=== PATIENT | female | born 1965 | race Caucasian/White ===

== ENCOUNTER 2017-02-09 11:03 | Outpatient (CLI) | payer MEDICAID ==
[2017-02-09] VITALS (11 sets, daily range): BP systolic 112–137; BP diastolic 51–70
[~2017-02-09 11:03] MED LIST: AMITRIPTYLINE100 M1 PO; B12-METHYL1000 MCG PO; BIOTIN1 TAB PO; BLACK COHOSH40 M1 PO; CITALOPRAM40 MG PO; ERYTHROMYCIN 2250 M3 PO; FELDENE10 MG PO; FLUTICASONE 50M16 GM; GABAPENTIN400 MG PO; HUMULIN 70100 UNITS/ SC; HYDROCODONE-APA1 TA1 PO; LASIX 20MG. TAB20 MG PO; LASIX20 MG PO; LEVOTHYROXINE0.1 M2 PO; LIPITOR40 MG PO; LISINOPRIL AND1 TA1 PO; MAXZIDE 25 MG-31 TAB PO; METFORMIN1000 MG PO; NOVOLIN 70/30 710 ML SC; NOVOLOG MIX 70/10 M1 SC; PAROXETINE20 MG PO; PIROXICAM PO; RANITIDINE150 M1 PO; TANZEUM30 MG SC; TRAMADOL 50MG T50 M1 PO; TRAMADOL50 M1 PO
[2017-02-09 11:46] LABS: HEMOGLOBIN 10.9 g/dL (12.2-16.2); LYMPH % 10.9 % (10-50.0)
[2017-02-09 12:00] LABS: BUN 32 mg/dL (7-18)
[2017-02-09 12:01] LABS: GFR (ESTIMATED) 30 ML/MIN (59-)
[2017-02-09] MEDS ORDERED: BUSPIRONE HCL10 MG PO (13:10)
[2017-02-09] MEDS ORDERED: LISINOPRIL HCTZ1 TAB PO (13:10)
[2017-02-09] MEDS ORDERED: GABAPENTIN 400400 MG PO (13:11)
[2017-02-09] MEDS ORDERED: LEVEMIR FLEX100 U/ML SC (13:14)
[2017-02-09] MEDS ORDERED: CLINDAMYCIN HC300 MG PO (13:15)
== END 2017-02-09 15:30 | disposition home or self-care (01) ==
LOC: COP 11:03
PROVIDERS: Nurse Practitioner Family
DX: A46 Erysipelas (principal)
CPT/HCPCS: J3370

== ENCOUNTER 2017-06-27 05:48 | Emergency (ER) | payer MEDICARE, OTHER, MEDICAID ==
[~2017-06-27] VITALS: Ht 167.6 cm; Wt 111.1 kg
[~2017-06-27 05:48] MED LIST changes: +BUSPIRONE HCL10 MG PO; +CLINDAMYCIN HC300 MG PO; +GABAPENTIN 400400 MG PO; +LEVEMIR FLEX100 U/ML SC; +LISINOPRIL HCTZ1 TAB PO; +MELOXICAM15 MG PO; +OMEPRAZOLE20 MG PO
--- OUTSIDE RECORDS SUMMARY | 2017-06-27 06:07 | External Medical Summary Rpt | CCD ---
Author Author , OPAL ROBERTSON Address Unknown Phone [email or web address] Purpose Continuity of Care Document - 11-07-2016 through 2016 Problems Code Diagnosis DOS Provider Status R06.02 SHORTNESS 05-06-2017 OF BREATH M17.0 BILATERAL 11-07-2016 PRIMARY OSTEOARTHRI TIS OF KNEE M54.5 LOW BACK 11-07-2016 PAIN A08.11 ACUTE GASTROENTER OPATHY DUE TO [place] AGENT D64.9 ANEMIA, UNSPECIFIED D72.829 ELEVATED WHITE BLOOD CELL COUNT, UNSPECIFIED E11.9 TYPE 2 DIABETES MELLITUS WITHOUT COMPLICATIO NS I10 ESSENTIAL (PRIMARY) HYPERTENSIO N N28.9 DISORDER OF KIDNEY AND URETER, UNSPECIFIED R07.9 CHEST PAIN, UNSPECIFIED R10.13 EPIGASTRIC PAIN R55 SYNCOPE AND COLLAPSE R73.9 HYPERGLYCEM IA, UNSPECIFIED R92.0 MAMMOGRAPHI C MICROCALCIF ICATION FOUND ON DX IMAGING OF BRST R92.1 MAMMOGRAPHI C CALCIFCN FOUND ON DIAGNOSTIC IMAGING OF BREAST Results Labs Lab Lab Date Result Refere Interp Status Commen Order Detail nces retati t Range on Hemoglobin A1c in Blood (05-04-2017 08:44) Hemoglo 7.4 % 0.0% High complet bin A1c 017 - ed in 08:44 7.0% Blood
--- OUTSIDE RECORDS SUMMARY | 2017-06-27 06:07 | External Medical Summary Rpt | CCD ---
Author Author , OPAL ROBERTSON Address Unknown Phone [email or web address] Purpose Continuity of Care Document - 11-07-2016 [...]
--- OUTSIDE RECORDS SUMMARY | 2017-06-27 06:07 | External Medical Summary Rpt | CCD ---
Author Author [employer] Address Unknown Phone Unavailable Purpose Continuity of Care Document - through 2016
--- OUTSIDE RECORDS SUMMARY | 2017-06-27 06:08 | External Medical Summary Rpt ---
Author Author TARADEREK Best, [employer] Address Unknown Phone Unavailable Results Comprehensive metabolic 2000 panel in Serum or Plasma Observa Value Referen Units Interpr Notes Date tion ce etation Range Albumin/G 1.1 - 1.8 No Normal No Sep 18 lobulin informati informati 2017 8:44 [Mass on in on in AM ratio] in source source Serum or data data Plasma Albumin 3.4 - 5.0 gm/dL Normal No Sep 18 [Mass/vol informati 2017 8:44 ume] in on in AM Serum or source Plasma data Alkaline 46 - 116 U/L Normal No Sep 18 phosphata informati 2017 8:44 se on in AM [Enzymati source c data activity/ volume] in Serum or Plasma Bilirubin 0.2 - 1.0 mg/dL Normal No Sep 18 .total informati 2017 8:44 [Mass/vol on in AM ume] in source Serum or data Plasma Urea 7 - 18 mg/dL Normal No Sep 18 nitrogen informati 2017 8:44 [Mass/vol on in AM ume] in source Serum or data Plasma Calcium 8.5 - mg/dL Normal No Sep 18 [Mass/vol 10.1 informati 2017 8:44 ume] in on in AM Serum or source Plasma data Chloride 98 - 107 mmoL/L Normal No Sep 18 [Moles/vo informati 2017 8:44 lume] in on in AM Serum or source Plasma data Carbon 21.0 - mmoL/L Normal No Sep 18 dioxide, 32.0 informati 2017 8:44 total on in AM [Moles/vo source lume] in data Serum or Plasma Creatinin 0.55 - mg/dL High No Sep 18 e 1.02 informati 2017 8:44 [Mass/vol on in AM ume] in source Serum or data Plasma Estimated 59- ML/MIN Low REFERENCE Sep 18 RANGE: 2017 8:44 glomerula >60 AM r ML/MIN/1. filtratio 73 SQUARE n rate METERSIf (GF this patient is -A merican, then multiply theresult by 1.210. Globulin 1.3 - 3.2 gm/dL Normal No Sep 18 [Mass/vol informati 2017 8:44 ume] in on in AM Serum source data Glucose 74 - 106 mg/dL High No Sep 18 [Mass/vol informati 2017 8:44 ume] in on in AM Serum or source Plasma data Potassium 3.5 - 5.1 mmoL/L Normal No Sep 18 informati 2016 8:44 [Moles/vo on in AM lume] in source Serum or data Plasma Sodium 136 - 145 mmoL/L Normal No Sep 18 [Moles/vo informati 2017 8:44 lume] in on in AM Serum or source Plasma data Aspartate 15 - 37 U/L Normal No Sep 18 informati 2016 8:44 aminotran on in AM sferase source [Enzymati data c activity/ volume] in Serum or Plasma Alanine 12 - 78 U/L Normal No Sep 18 aminotran informati 2016 8:44 sferase on in AM [Enzymati source c data activity/ volume] in Serum or Plasma Protein 6.4 - 8.2 gm/dL Normal No Sep 18 [Mass/vol informati 2017 8:44 ume] in on in AM Serum or source Plasma data Lipid 1996 panel in Serum or Plasma Observa Value Referen Units Interpr Notes Date tion ce etation Range Cholester < 200 mg/dL No No Sep 18 ol informati informati 2016 8:44 [Moles/vo on in on in AM lume] in source source Unspecifi data data ed specimen Cholester 40 - 60 MG/DL Normal No Sep 18 ol in HDL informati 2017 8:44 on in AM [Mass/vol source ume] in data Serum or Plasma Cholester 0 - 130 mg/dL Normal No Sep 18 ol in LDL informati 2017 8:44 on in AM [Mass/vol source ume] in data Serum or Plasma by néstor on Triglycer 30 - 200 mg/dL Normal No Sep 18 pretty informati 2017 8:44 [Moles/vo on in AM lume] in source Serum or data Plasma Cholester 0 - 40 No Normal No Sep 18 ol in informati informati 2017 8:44 VLDL on in on in AM [Mass/vol source source ume] in data data Serum or Plasma Thyrotropin [Units/volume] in Serum or Plasma Observa Value Referen Units Interpr Notes Date tion ce etation Range Thyrotrop 0.358 - uIU/ml Normal No Sep 18 in 3.740 informati 2017 8:44 [Units/vo on in AM lume] in source Serum or data Plasma Hemoglobin A1c in Blood Observa Value Referen Units Interpr Notes Date tion ce etation Range Hemoglo 7.4 0.0 - % High < 6% Sep 18 bin A1c 7.0 NON-FRANSISCO 2017 in BETIC 8:44 AM Blood LEVEL< 7% CONTROL LED DIABETI C LEVEL> 8% POORLY CONTROL LED DIABETI C LEVEL CBC W Auto Differential panel in Blood Observa Value Referen Units Interpr Notes Date tion ce etation Range Basophils 0 - 0.2 K/MM3 Normal No Sep 18 informati 2017 8:44 [#/volume on in AM ] in source Blood by data Automated count Basophils 0.1 - 2.0 % Normal No Sep 18 /100 informati 2017 8:44 leukocyte on in AM s in source Blood by data Automated count Eosinophi 0.0 - 0.4 K/mm3 Normal No Sep 18 ls informati 2016 8:44 [#/volume on in AM ] in source Blood by data Automated count Eosinophi 0.1 - % Normal No Sep 18 ls/100 12.0 informati 2017 8:44 leukocyte on in AM s in source Blood by data Automated count Granulocy 1.8 - 7.8 K/mm3 Normal No Sep 18 staci informati 2016 8:44 [#/volume on in AM ] in source Blood by data Automated count Granulocy 37.0 - % High No Sep 18 staci/100 80.0 informati 2016 8:44 leukocyte on in AM s in source Blood by data Automated count Hematocri 37.0 - % Low No Sep 18 t [Volume 47.0 informati 2017 8:44 on in AM Fraction] source of Blood data Hemoglobi 12.2 - g/dL Low No Sep 18 n 16.2 informati 2016 8:44 [Mass/vol on in AM ume] in source Blood data Lymphocyt 0.7 - 4.5 K/mm3 Normal No Sep 18 es informati 2017 8:44 [#/volume on in AM ] in source Unspecifi data ed specimen by Automated count Lymphocyt 10 - 50.0 % Normal No Sep 18 es informati 2016 8:44 [#/volume on in AM ] in source Unspecifi data ed specimen by Automated count Erythrocy 27 - 31.2 pg Normal No Sep 18 te mean informati 2016 8:44 corpuscul on in AM ar source hemoglobi data n [Entitic mass] Erythrocy 31.8 - g/dl Normal No Sep 18 te mean 35.4 informati 2016 8:44 corpuscul on in AM ar source hemoglobi data n concentra tion [Mass/vol ume] by Automated count Erythrocy 82.2 - fl Normal No Sep 18 te mean 97.8 informati 2016 8:44 corpuscul on in AM ar volume source [Entitic data volume] by Automated count Monocytes 0.1 - 1.0 K/mm3 Normal No Sep 18 informati 2016 8:44 [#/volume on in AM ] in source Blood by data Automated count Monocytes 1.7 - 9.3 % Normal No Sep 18 /100 informati 2016 8:44 leukocyte on in AM s in source Blood by data Automated count Platelet 7.4 - fl Normal No Sep 18 mean 10.4 informati 2016 8:44 volume on in AM [Entitic source volume] data in Blood by Automated count Platelets 142 - 424 K/mm3 No No Sep 18 informati informati 2016 8:44 [#/volume on in on in AM ] in source source Blood data data Erythrocy 4.2 - 5.4 M/mm3 Low No Sep 18 staci informati 2016 8:44 [#/volume on in AM ] in source Amniotic data fluid Erythrocy 11.5 - % Normal No Sep 18 te 17.5 informati 2016 8:44 distribut on in AM ion width source [Entitic data volume] by Automated count Leukocyte 4.8 - K/MM3 Normal No Sep 18 s 10.8 informati 2016 8:44 [#/volume on in AM ] in source Blood data CBC W Auto Differential panel in Blood Observa Value Referen Units Interpr Notes Date tion ce etation Range Basophils 0 - 0.2 K/MM3 Normal No Sep 3 informati 2016 9:15 [#/volume on in PM ] in source Blood by data Automated count Basophils 0.1 - 2.0 % Normal No Sep 3 /100 informati 2016 9:15 leukocyte on in PM s in source Blood by data Automated count Eosinophi 0.0 - 0.4 K/mm3 Normal No Sep 3 ls informati 2017 9:15 [#/volume on in PM ] in source Blood by data Automated count Eosinophi 0.1 - % Normal No Sep 3 ls/100 12.0 informati 2016 9:15 leukocyte on in PM s in source Blood by data Automated count Granulocy 1.8 - 7.8 K/mm3 Normal No Sep 3 staci informati 2016 9:15 [#/volume on in PM ] in source Blood by data Automated count Granulocy 37.0 - % Normal No Sep 3 staci/100 80.0 informati 2016 9:15 leukocyte on in PM s in source Blood by data Automated count Hematocri 37.0 - % Normal No Sep 3 t [Volume 47.0 informati 2016 9:15 on in PM Fraction] source of Blood data Hemoglobi 12.2 - g/dL No No Sep 3 n 16.2 informati informati 2016 9:15 [Mass/vol on in on in PM ume] in source source Blood data data Lymphocyt 0.7 - 4.5 K/mm3 Normal No Sep 3 es informati 2017 9:15 [#/volume on in PM ] in source Unspecifi data ed specimen by Automated count Lymphocyt 10 - 50.0 % Normal No Sep 3 es informati 2017 9:15 [#/volume on in PM ] in source Unspecifi data ed specimen by Automated count Erythrocy 27 - 31.2 pg Normal No Sep 3 te mean informati 2016 9:15 corpuscul on in PM ar source hemoglobi data n [Entitic mass] Erythrocy 31.8 - g/dl Normal No Sep 3 te mean 35.4 informati 2016 9:15 corpuscul on in PM ar source hemoglobi data n concentra tion [Mass/vol ume] by Automated count Erythrocy 82.2 - fl Normal No Sep 3 te mean 97.8 informati 2016 9:15 corpuscul on in PM ar volume source [Entitic data volume] by Automated count Monocytes 0.1 - 1.0 K/mm3 Normal No Sep 3 informati 2016 9:15 [#/volume on in PM ] in source Blood by data Automated count Monocytes 1.7 - 9.3 % Normal No Sep 3 /100 informati 2016 9:15 leukocyte on in PM s in source Blood by data Automated count Platelet 7.4 - fl Normal No Sep 3 mean 10.4 inform2016 9:15 volume on in PM [Entitic source volume] data in Blood by Automated count Platelets 142 - 424 K/mm3 No No Sep 3 informati informati 2017 9:15 [#/volume on in on in PM ] in source source Blood data data Erythrocy 4.2 - 5.4 M/mm3 Normal No Sep 3 staci informati 2016 9:15 [#/volume on in PM ] in source Amniotic data fluid Erythrocy 11.5 - % Normal No Sep 3 te 17.5 informati 2016 9:15 distribut on in PM ion width source [Entitic data volume] by Automated count Leukocyte 4.8 - K/MM3 Normal No Sep 3 s 10.8 informati 2016 9:15 [#/volume on in PM ] in source Blood data Basic metabolic panel in Blood Observa Value Referen Units Interpr Notes Date tion ce etation Range Urea 7 - 18 mg/dL High No Apr 15 nitrogen 2016 [Mass/vol on in 10:10 AM ume] in source Serum or data Plasma Calcium 8.5 - mg/dL Normal No Apr 15 [Mass/vol 10.1 informati 2016 ume] in on in 10:10 AM Serum or source Plasma data Chloride 98 - 107 mmoL/L Normal No Apr 15 [Moles/vo informati 2016 lume] in on in 10:10 AM Serum or source Plasma data Carbon 21.0 - mmoL/L Normal No Apr 15 dioxide, 32.0 2016 total on in 10:10 AM [Moles/vo source lume] in data Serum or Plasma Creatinin 0.55 - mg/dL High No Apr 15 e 1.02 2016 [Mass/vol on in 10:10 AM ume] in source Serum or data Plasma Estimated 59- ML/MIN Low REFERENCE Apr 15 RANGE: 2017 glomerula >60 10:10 AM r ML/MIN/1. filtratio 73 SQUARE n rate METERSIf (GF this patient is -A merican, then multiply theresult by 1.210. Glucose 74 - 106 mg/dL High No Apr 15 [Mass/vol informati 2016 ume] in on in 10:10 AM Serum or source Plasma data Potassium 3.5 - 5.1 mmoL/L High No Apr 15 inform2016 [Moles/vo on in 10:10 AM lume] in source Serum or data Plasma Sodium 136 - 145 mmoL/L Normal No Apr 15 [Moles/vo informati 2016 lume] in on in 10:10 AM Serum or source Plasma data Glucose [Mass/volume] in Capillary blood by Glucometer Observa Value Referen Units Interpr Notes Date tion ce etation Range Glucose 70 - 110 mg/dl High No Apr 15 [Mass/vol informati 2016 8:36 ume] in on in AM Capillary source blood by data Glucomete r Choriogonadotropin.beta subunit [Units] in 24 hour Urine Observa Value Referen Units Interpr Notes Date tion ce etation Range Choriogon NEG No No Jo Apr 15 adotropin informati informati 2017 8:20 .beta on in on in AM subunit source source [Units] data data in 24 hour Urine Basic metabolic panel in Blood Observa Value Referen Units Interpr Notes Date tion ce etation Range Urea 7 - 18 mg/dL High No Apr 06 nitrogen informati 2016 [Mass/vol on in 10:54 AM ume] in source Serum or data Plasma Calcium 8.5 - mg/dL Normal No Apr 06 [Mass/vol 10.1 informati 2016 ume] in on in 10:54 AM Serum or source Plasma data Chloride 98 - 107 mmoL/L Normal No Apr 06 [Moles/vo informati 2016 lume] in on in 10:54 AM Serum or source Plasma data Carbon 21.0 - mmoL/L Normal No Apr 06 dioxide, 32.0 informati 2017 total on in 10:54 AM [Moles/vo source lume] in data Serum or Plasma Creatinin 0.55 - mg/dL High No Apr 06 e 1.02 informati 2016 [Mass/vol on in 10:54 AM ume] in source Serum or data Plasma Estimated 59- ML/MIN Low alert REFERENCE Apr 06 RANGE: 2017 glomerula >60 10:54 AM r ML/MIN/1. filtratio 73 SQUARE n rate METERSIf (GF this patient is -A merican, then multiply theresult by 1.210. Glucose 74 - 106 mg/dL High No Apr 06 [Mass/vol informati 2016 ume] in on in 10:54 AM Serum or source Plasma data Potassium 3.5 - 5.1 mmoL/L Normal No Apr 06 inform2016 [Moles/vo on in 10:54 AM lume] in source Serum or data Plasma Sodium 136 - 145 mmoL/L Low No Apr 06 [Moles/vo 2016 lume] in on in 10:54 AM Serum or source Plasma data CBC W Auto Differential panel in Blood Observa Value Referen Units Interpr Notes Date tion ce etation Range Basophils 0 - 0.2 K/MM3 Normal No Apr 06 inform2016 [#/volume on in 10:54 AM ] in source Blood by data Automated count Basophils 0.1 - 2.0 % Normal No Apr 06 /100 informati 2016 leukocyte on in 10:54 AM s in source Blood by data Automated count Eosinophi 0.0 - 0.4 K/mm3 Normal No Apr 06 ls 2016 [#/volume on in 10:54 AM ] in source Blood by data Automated count Eosinophi 0.1 - % Normal No Apr 06 ls/100 12.0 inform2016 leukocyte on in 10:54 AM s in source Blood by data Automated count Granulocy 1.8 - 7.8 K/mm3 Normal No Apr 06 staci 2016 [#/volume on in 10:54 AM ] in source Blood by data Automated count Granulocy 37.0 - % Normal No Apr 06 staci/100 80.0 inform2016 leukocyte on in 10:54 AM s in source Blood by data Automated count Hematocri 37.0 - % Low No Apr 06 t [Volume 47.0 ati 2016 on in 10:54 AM Fraction] source of Blood data Hemoglobi 12.2 - g/dL Low No Apr 06 n 16.2 2016 [Mass/vol on in 10:54 AM ume] in source Blood data Lymphocyt 0.7 - 4.5 K/mm3 Normal No Apr 06 es 2016 [#/volume on in 10:54 AM ] in source Unspecifi data ed specimen by Automated count Lymphocyt 10 - 50.0 % Normal No Apr 06 es 2016 [#/volume on in 10:54 AM ] in source Unspecifi data ed specimen by Automated count Erythrocy 27 - 31.2 pg Normal No Apr 06 te mean 2016 corpuscul on in 10:54 AM ar source hemoglobi data n [Entitic mass] Erythrocy 31.8 - g/dl Normal No Apr 06 te mean 35.4 2016 corpuscul on in 10:54 AM ar source hemoglobi data n concentra tion [Mass/vol ume] by Automated count Erythrocy 82.2 - fl Normal No Apr 06 te mean 97.8 2016 corpuscul on in 10:54 AM ar volume source [Entitic data volume] by Automated count Monocytes 0.1 - 1.0 K/mm3 Normal No Apr 06 inform2016 [#/volume on in 10:54 AM ] in source Blood by data Automated count Monocytes 1.7 - 9.3 % Normal No Apr 06 /100 inform2016 leukocyte on in 10:54 AM s in source Blood by data Automated count Platelet 7.4 - fl Normal No Apr 06 mean 10.4 inform2016 volume on in 10:54 AM [Entitic source volume] data in Blood by Automated count Platelets 142 - 424 K/mm3 Normal No Apr 06 inform2016 [#/volume on in 10:54 AM ] in source Blood data Erythrocy 4.2 - 5.4 M/mm3 Low No Apr 06 staci inform2016 [#/volume on in 10:54 AM ] in source Amniotic data fluid Erythrocy 11.5 - % Normal No Apr 06 te 17.5 2016 distribut on in 10:54 AM ion width source [Entitic data volume] by Automated count Leukocyte 4.8 - K/MM3 Normal No Apr 06 s 10.8 inform2016 [#/volume on in 10:54 AM ] in source Blood data Comprehensive metabolic 2000 panel in Serum or Plasma Observa Value Referen Units Interpr Notes Date tion ce etation Range COMMENTS TO TELEVISION REPORTER: DRAWN PER RN Albumin/G 1.1 - 1.8 No Low No Feb 09 lobulin informati inform2016 [Mass on in on in 11:30 AM ratio] in source source Serum or data data Plasma Albumin 3.4 - 5.0 gm/dL Normal No Feb 09 [Mass/vol inform2016 ume] in on in 11:30 AM Serum or source Plasma data Alkaline 46 - 116 U/L Normal No Feb 09 phosphata 2016 se on in 11:30 AM [Enzymati source c data activity/ volume] in Serum or Plasma Bilirubin 0.2 - 1.0 mg/dL Normal No Feb 09 .total inform2016 [Mass/vol on in 11:30 AM ume] in source Serum or data Plasma Urea 7 - 18 mg/dL High No Feb 09 nitrogen informati 2016 [Mass/vol on in 11:30 AM ume] in source Serum or data Plasma Calcium 8.5 - mg/dL Normal No Feb 09 [Mass/vol 10.1 informati 2016 ume] in on in 11:30 AM Serum or source Plasma data Chloride 98 - 107 mmoL/L Normal No Feb 09 [Moles/vo informati 2016 lume] in on in 11:30 AM Serum or source Plasma data Carbon 21.0 - mmoL/L Normal No Feb 09 dioxide, 32.0 informati 2016 total on in 11:30 AM [Moles/vo source lume] in data Serum or Plasma Creatinin 0.55 - mg/dL High No Feb 09 e 1.02 informati 2016 [Mass/vol on in 11:30 AM ume] in source Serum or data Plasma Estimated 59- ML/MIN Low REFERENCE Feb 09 RANGE: 2017 glomerula >60 11:30 AM r ML/MIN/1. filtratio 73 SQUARE n rate METERSIf (GF this patient is -A merican, then multiply theresult by 1.210. Globulin 1.3 - 3.2 gm/dL High No Feb 09 [Mass/vol informati 2016 ume] in on in 11:30 AM Serum source data Glucose 74 - 106 mg/dL High No Feb 09 [Mass/vol informati 2016 ume] in on in 11:30 AM Serum or source Plasma data Potassium 3.5 - 5.1 mmoL/L Normal No Feb 092016 [Moles/vo on in 11:30 AM lume] in source Serum or data Plasma Sodium 136 - 145 mmoL/L Low No Feb 09 [Moles/vo informati 2016 lume] in on in 11:30 AM Serum or source Plasma data Aspartate 15 - 37 U/L Normal No Feb 09 inform2016 aminotran on in 11:30 AM sferase source [Enzymati data c activity/ volume] in Serum or Plasma Alanine 12 - 78 U/L Normal No Feb 09 aminotran inform2016 sferase on in 11:30 AM [Enzymati source c data activity/ volume] in Serum or Plasma Protein 6.4 - 8.2 gm/dL Normal No Feb 09 [Mass/vol informati 2016 ume] in on in 11:30 AM Serum or source Plasma data CBC W Auto Differential panel in Blood Observa Value Referen Units Interpr Notes Date tion ce etation Range COMMENTS TO TELEVISION REPORTER: DRAWN PER RN Basophils 0 - 0.2 K/MM3 Normal No Feb 09 inform2016 [#/volume on in 11:30 AM ] in source Blood by data Automated count Basophils 0.1 - 2.0 % Normal No Feb 09 /100 informati 2016 leukocyte on in 11:30 AM s in source Blood by data Automated count Eosinophi 0.0 - 0.4 K/mm3 Normal No Feb 09 ls informati 2016 [#/volume on in 11:30 AM ] in source Blood by data Automated count Eosinophi 0.1 - % Normal No Feb 09 ls/100 12.0 informati 2016 leukocyte on in 11:30 AM s in source Blood by data Automated count Granulocy 1.8 - 7.8 K/mm3 Normal No Feb 09 staci inform2016 [#/volume on in 11:30 AM ] in source Blood by data Automated count Granulocy 37.0 - % High No Feb 09 staci/100 80.0 informati 2016 leukocyte on in 11:30 AM s in source Blood by data Automated count Hematocri 37.0 - % Low No Feb 09 t [Volume 47.0 informati 2016 on in 11:30 AM Fraction] source of Blood data Hemoglobi 12.2 - g/dL Low No Feb 09 n 16.2 informati 2016 [Mass/vol on in 11:30 AM ume] in source Blood data Lymphocyt 0.7 - 4.5 K/mm3 Normal No Feb 09 es informati 2016 [#/volume on in 11:30 AM ] in source Unspecifi data ed specimen by Automated count Lymphocyt 10 - 50.0 % Normal No Feb 09 es inform2016 [#/volume on in 11:30 AM ] in source Unspecifi data ed specimen by Automated count Erythrocy 27 - 31.2 pg Normal No Feb 09 te mean informati 2016 corpuscul on in 11:30 AM ar source hemoglobi data n [Entitic mass] Erythrocy 31.8 - g/dl Normal No Feb 09 te mean 35.4 informati 2016 corpuscul on in 11:30 AM ar source hemoglobi data n concentra tion [Mass/vol ume] by Automated count Erythrocy 82.2 - fl Normal No Feb 09 te mean 97.8 informati 2016 corpuscul on in 11:30 AM ar volume source [Entitic data volume] by Automated count Monocytes 0.1 - 1.0 K/mm3 Normal No Feb 09 inform2016 [#/volume on in 11:30 AM ] in source Blood by data Automated count Monocytes 1.7 - 9.3 % Normal No Feb 09 /100 2016 leukocyte on in 11:30 AM s in source Blood by data Automated count Platelet 7.4 - fl Normal Feb 09 mean 10.4 2016 volume on in 11:30 AM [Entitic source volume] data in Blood by Automated count Platelets 142 - 424 K/mm3 Normal No Feb 09 inform2016 [#/volume on in 11:30 AM ] in source Blood data Erythrocy 4.2 - 5.4 M/mm3 Low No Feb 09 staci inform2016 [#/volume on in 11:30 AM ] in source Amniotic data fluid Erythrocy 11.5 - % Normal No Feb 09 te 17.5 2016 distribut on in 11:30 AM ion width source [Entitic data volume] by Automated count Leukocyte 4.8 - K/MM3 Normal No Feb 09 s 10.8 2016 [#/volume on in 11:30 AM ] in source Blood data
--- OUTSIDE RECORDS SUMMARY | 2017-06-27 06:08 | External Medical Summary Rpt | CCD ---
Demographics Preferred Language Divehi Marital Status Unknown Sikhism Affiliation Unknown Race Unknown Ethnic Group Unknown Author Author , MARCELO ROBERTSON Address Unknown Phone Immunization Unable to retrieve immunization data due to connection failure with Immunization Registry. Please try again later.
--- OUTSIDE RECORDS SUMMARY | 2017-06-27 06:08 | External Medical Summary Rpt | CCD ---
Demographics Preferred Language Syriac Marital Status Unknown [employer] Affiliation Unknown Race Unknown Ethnic Group Unknown Author Author , MARCELO ROBERTSON Address Unknown Phone Immunization Unable to retrieve immunization data due to connection failure with Immunization Registry. Please try again later.
--- OUTSIDE RECORDS SUMMARY | 2017-06-27 06:08 | External Medical Summary Rpt ---
[...] Date tion ce etation Range COMMENTS TO NET PROGRAMMER: DRAWN PER RN Albumin/G 1.1 - 1.8 [...] Date tion ce etation Range COMMENTS TO NET PROGRAMMER: DRAWN PER RN Basophils 0 - 0.2 [...]
[2017-06-27 06:16] LABS: LYMPH # 1.5 K/mm3 (0.7-4.5); LYMPH % 12.1 % (10-50.0)
[2017-06-27 06:17] LABS: HEMOGLOBIN 12.9 g/dL (12.2-16.2)
--- NOTE | 2017-06-27 06:57 | RADIOLOGY REPORT PS360 ---
CT HEAD W/O CONTRAST HISTORY: Syncope, dizziness, headache SYNCOPE ORDERING PHYSICIAN: Timbo Askew MD PATIENT AGE: 52 years COMPARISON: 04/19/2017 TECHNIQUE: Axial images obtained without contrast. Brain and bone windows reviewed. FINDINGS: No midline shift, mass effect, intracranial hemorrhage, hydrocephalus, or extra-axial fluid collection is evident. The calvarium has an unremarkable appearance. No mastoid effusion. The visualized paranasal sinuses are unremarkable. IMPRESSION: Negative CT head without contrast. No acute finding.
--- NOTE | 2017-06-27 07:04 | RADIOLOGY REPORT PS360 ---
CT ABD PELVIS W/O CONTRAST CLINICAL INDICATION: Left upper quadrant pain LUQ ABD PAIN; HX OF PANCREATITIS ORDERING PHYSICIAN: Timbo Askew MD PATIENT AGE: 52 years COMPARISON: 06/21/2016 TECHNIQUE: Axial images obtained with sagittal and coronal reformats. PROCEDURE: Oral Contrast: None IV Contrast: None . FINDINGS: Lung bases are clear. The liver, gallbladder, spleen, pancreas, and adrenal glands have an unremarkable unenhanced appearance. No evidence of pancreatitis. No renal calculi or hydronephrosis. No ureteral calculi. There is no evidence of appendicitis, intestinal obstruction, or free air. There is an IUD in place. No pelvic mass or abnormal fluid collection is evident. No acute bony anomalies. There is generalized spondylosis of the thoracic and lumbar spine. IMPRESSION: 1. No acute intra-abdominal or pelvic pathology. 2. No evidence of pancreatitis on this unenhanced exam
--- NOTE | 2017-06-27 07:15 | Emergency Room Report ---
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 N Clinical Suspician of Infection? N Mental Status: 1 - Regular (Normal Baseline) Sepsis Risk:Low Sepsis Risk Have you (or family members/close friends) recently traveled outside the [place]? N If Yes, where/when: Have you had exposure to infectious disease within the past month? N TB? Other? Specify: Source patient, RN notes reviewed, family, old records Exam Limitations no limitations Comment pt withepisode of syncope this am after returning from bathroom - pt has had episodes in past - pt has had card eval in past Cardiac Chest Pain Chest pain indicative of cardiac No Timing/Duration this evening Severity moderate ALLERGIES Coded Allergies: milnacipran (From SAVELLA) (Severe, NA-NAUSEA/VOMITING 04/15/17) pregabalin (From LYRICA) (Severe, NA-NAUSEA, HEADACHE 04/15/17) modafinil (From PROVIGIL) (I-RASH 04/15/17) Home Medications Reported Medications Atorvastatin Calcium (Atorvastatin) 40 MG PO QHS TRAMADOL HCL (Tramadol) 50 MG PO QID INSUL REG 30%ISOPHAN 70% HUMAN (Humulin 70-30 Vial) 35 UNITS SC BID LISINOPRIL/HYDROCHLOROTHIAZIDE (Lisinopril-Hctz 20-25 MG Tab) 1 TAB PO DAILY Insulin Detemir (Levemir Flextouch) 15 UNITS SC QHS AMITRIPTYLINE HCL (Amitriptyline Hcl) 100 MG PO QHS FLUTICASONE PROPIONATE (Fluticasone 50MCG Nasal [place]) 2 SPRAY NA DAILY PRN BREATHING Omeprazole (Omeprazole 20MG) 20 MG PO DAILY CITALOPRAM HYDROBROMIDE (Citalopram HBr) 40 MG PO DAILY Levothyroxine Sodium 0.1 MG PO DAILY Albiglutide (Tanzeum) 30 MG SC WEEKLY History Medical History General CAD? No Angina: No [place]: No Hypertension? Yes Hyperlipidemia? Yes CHF? No DVT? No PE? No COPD? No Asthma? No Anemia? No GERD? Yes Gastric ulcers? No GI Bleed? No Hernia? No Thyroid Problems? Yes Hypothyroidism? Yes CVA? No Seizures? No Diabetes? Yes Insulin Dependent: Yes Insulin Pump: No Home FSBS? Yes Renal Insuffiency? No End Stage Renal Disease? No UTI? No Stones? No BPH? No GB Disease: Yes Nephritic Syndrome? No Asplenia? No Hepatitis? No Sickle Cell Disease? No Arthritis? Yes Migraines? No Cataracts? No Glaucoma? No MRSA? No HIV? No TB? No Anxiety? Yes Depression? Yes Cancer? No More? 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 Respiratory denies cough, denies shortness of breath, denies wheezing Cardiovascular see HPI, denies chest pain, syncope Gastrointestinal denies abdominal pain, denies vomiting Genitourinary denies: dysuria, frequency, hesitancy, hematuria. Musculoskeletal denies back pain, denies joint pain, denies joint swelling, denies neck pain Skin denies rash Psychiatric/Neurological see HPI, headache, denies seizure Physical Exam Vital Signs Vital Signs Date Time Temp Pulse Resp B/P Pulse O2 O2 Flow FiO2 Ox Delivery Rate 06/27 0746 98.0 88 16 95/52 98 06/27 0745 88 95/52 06/27 0745 88 126/65 06/27 0745 81 118/65 06/27 0740 16 06/27 0553 98.0 90 18 100/49 98 - WBC >12,000 or <4,000 or 10% bands? 2 or more SIRS Criteria Met? B/P:100/49 MAP:66 Creatinine >2.0? UA output<0.5ml/kg/hr for 2 hrs? Platelet count >100,000? Lactate >2.0mmol/1? INR >1.2 or PTT > than 60 sec? Evidence of Organ Dysfunction? Provider documented clinical suspician of infection? N Sepsis Criteria Count: 1 Sepsis Risk: Low Sepsis Risk General Appearance no apparent distress Eye Exam - bilateral eye PERRL, bilateral eye EOMI Ear, Nose, Throat normal ENT inspection Neck supple Respiratory Status No: respiratory distress. Lung Sounds bilateral: lungs clear. 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 No Results/Orders Laboratory Tests 06/27/17 0605: Sodium 129 L, Potassium 3.2 L, Chloride 92 L, Carbon Dioxide 29, BUN 23 H, Creatinine 1.7 H, Estimated Creat Clear 69, Estimated GFR (MDRD) 32 L, Glucose 306 H, Calcium 9.6, Total Bilirubin 0.5, AST 16, ALT 22, Alkaline Phosphatase 171 H, Total Protein 7.8, Albumin 4.0, Globulin 3.8 H, Albumin/Globulin Ratio 1.1, Amylase 65, Lipase 198, WBC 12.1 H, RBC 4.76, Hgb 12.9, Hct 40.1, MCV 84.2 , RDW 13.3, Plt Count 263, MPV 8.7, Gran % 80.0, Gran # 9.7 H, Lymphocytes % 12.1, Monocytes % 5.8, Eosinophils % 1.7, Basophils % 0.4, Lymphocytes # 1.5, Monocytes # 0.7, Eosinophils # 0.2, Basophils # 0.1, PUBS MCHC 32.3, MCH 27.2 Current Medication Orders Sig/Dino Start time Last Medication Dose Route Stop Time Status Admin Ketorolac 0 .STK-MED ONE 06/27 0740 DC Tromethamine .ROUTE Ketorolac 15 MG ONCE ONE 06/27 0730 DC 06/27 Tromethamine IV 06/27 0731 0740 Sodium Chloride 250 ML .Q1H 06/27 0730 DC 06/27 IV 06/27 0829 0724 Sodium Chloride 250 ML .STK-MED ONE 06/27 0717 DC IV Sodium Chloride 10 ML PRN PRN 06/27 0615 AC IV 06/28 0610 Sodium Chloride 1,000 ML .Q1H1M 06/27 0615 DC 06/27 IV 06/27 0715 0616 Sodium Chloride 10 ML PRN PRN 06/27 0615 AC IV 06/28 0612 Sodium Chloride 1,000 ML .STK-MED ONE 06/27 0615 DC IV Orders Procedure Date/time Status DIET-NOTHING BY MOUTH 06/27 B Active ORTHOSTATIC B/P 06/[address] HEAD REQ 06/[address] ABD/PELVIS REQ 06/27 0612 Complete IV SALINE LOCK 06/27 0612 Active URINALYSIS/COMPLETE 06/27 06 Active LIPASE 06/27 0612 Complete CBC WITH AUTO DIFF 06/27 06 Complete CHEM 12 PROFILE 06/27 06 Complete AMYLASE 06/27 06 Complete XRAY/CT/US XRAY/CT/US CT head, abdomen, pelvis CT interpretation by discussed w/radiologist Time results known: 07 CT Results normal/NAD Departure Departure Time of Disposition 0831 Disposition DC Home or Self Care(routine) Clinical Impression Primary Impression: Vasovagal episode Secondary Impressions: Renal insufficiency Condition STABLE Referrals David Askew MD (Family) Patient Instructions DI for Syncope in Adults (Fainting) Additional Instructions fluids and hold lisinopril and call pcp thursday am Discharge Counseling Counseled pt/family regarding diagnosis, test results, follow up needs ED Critical Care [place] 0835
[2017-06-27 08:55] VITALS: BP 142/74
== END 2017-06-27 08:56 | disposition home or self-care (01) ==
LOC: ER 05:48
PROVIDERS: Emergency Medicine
DX: R55 Syncope and collapse (principal); N28.9 Disorder of kidney and ureter, unspecified; I10 Essential (primary) hypertension; E78.5 Hyperlipidemia, unspecified; K21.9 Gastro-esophageal reflux disease without esophagitis; E03.9 Hypothyroidism, unspecified; E11.9 Type 2 diabetes mellitus without complications; R25.2 Cramp and spasm; R51 Headache; Z88.8 Allergy status to other drugs, medicaments and biological substances; Z79.4 Long term (current) use of insulin; Z79.891 Long term (current) use of opiate analgesic; Z79.899 Other long term (current) drug therapy

== ENCOUNTER → 2017-07-30 | Outpatient (CLI) | payer MEDICARE, OTHER, MEDICAID ==
[2017-07-30 10:22] LABS: HEMOGLOBIN 13.2 g/dL (12.2-16.2); LYMPH # 1.3 K/mm3 (0.7-4.5); LYMPH % 16.3 % (10-50.0)
[2017-07-30 12:56] LABS: BUN 29 mg/dL (7-18)
[2017-07-30 14:06] LABS: GFR (ESTIMATED) 30 ML/MIN (59-)
[2017-07-31 07:39] LABS: HSV 2 IgG, Type Spec <0.91 index (0.00-0.90)
[2017-07-31 14:40] LABS: HSV, IgM I/II Combination <0.91 Ratio (0.00-0.90)
== END ==
LOC: LAB 09:51
PROVIDERS: Emergency Medicine; Nurse Practitioner Obstetrics & Gynecology
DX: Z72.51 High risk heterosexual behavior (principal); E11.9 Type 2 diabetes mellitus without complications; E03.9 Hypothyroidism, unspecified